=== PATIENT | female | born 1995 | race Caucasian/White ===

== ENCOUNTER 2022-10-03 20:26 | Emergency (ER) | payer MEDICAID ==
[~2022-10-03] VITALS: Ht 160 cm; Wt 81.6 kg
[2022-10-03 20:32] VITALS: BP_SYST 134
[2022-10-03] MEDS ORDERED: DOXYCYCLINE HYCLATE 100 MG CAPSULE PO ONE (22:15)
[2022-10-03] MEDS ORDERED: LIDOCAINE 1% 10 MG/ML, 20 ML MDV ID ONE (22:15)
[2022-10-03] MEDS ORDERED: ACETAMINOPHEN 500 MG TABLET PO ONE (22:15)
[2022-10-03] MEDS ORDERED: DOXY100C PO (22:39)
[2022-10-03 22:46] VITALS: BP_SYST 134
== END 2022-10-03 22:46 | disposition home or self-care (01) ==
LOC: SED 20:26
DX: L02.31 Cutaneous abscess of buttock (principal); R22.42 Localized swelling, mass and lump, left lower limb; Z79.899 Other long term (current) drug therapy
CPT/HCPCS: 99283; 10060; J2001

== ENCOUNTER 2023-06-20 22:50 | Emergency (ER) | payer MEDICAID ==
[~2023-06-20] VITALS: Ht 160 cm; Wt 81.6 kg
[~2023-06-20 22:50] MED LIST: DOXY100C PO
[2023-06-20 23:07] VITALS: BP_SYST 147; PULSE 91; RESP 18; TEMP 97.9; O2SAT 16
[2023-06-21] MEDS ORDERED: KETOROLAC TROMETHAMINE 30 MG VIAL IVP ONE (00:15)
[2023-06-21] MEDS ORDERED: PIPERACILLIN/TAZO 3.375 GM in NS 50 ML IV ONE (00:15)
[2023-06-21] MEDS ORDERED: PIPERACILLIN/TAZOBACTAM 3.375 GM/VIAL (ZOSYN) IV ONE (00:25)
[2023-06-21 00:54] LABS: BASOPHILS # (AUTO) 0.1 K/uL (0.0-0.2); BASOPHILS % (AUTO) 0.8 % (0.0-2.0); EOSINOPHILS # (AUTO) 0.2 K/uL (0.0-0.4); LYMPHOCYTES # (AUTO) 2.5 K/uL (1.0-5.5); LYMPHOCYTES % (AUTO) 33.7 % (20.5-51.5); MEAN CORPUSCULAR HEMOGLOBIN 24 pg (27-31); MEAN CORPUSCULAR HGB CONC 32 % (32-36); MEAN CORPUSCULAR VOLUME 75 fL (79.0-98.0); MONOCYTES # (AUTO) 0.7 K/uL (0.0-1.0); MONOCYTES % (AUTO) 9.1 % (1.7-9.3); NEUTROPHILS % (AUTO) 53.4 % (40.0-70.0); PLATELET COUNT (AUTO) 523 K/uL (130-430); RED CELL DISTRIBUTION WIDTH 15.3 % (9.0-15.0); WHITE BLOOD COUNT (AUTO) 7.4 K/uL (4.8-10.8)
[2023-06-21 00:57] LABS: CALCIUM 9.3 mg/dL (8.4-11.0); CREATININE 1.04 mg/dL (0.55-1.30); POTASSIUM 3.9 mmol/L (3.5-5.1)
[2023-06-21 01:02] LABS: ALBUMIN 3.8 g/dL (3.4-4.8); TOTAL BILIRUBIN 0.2 mg/dL (0.0-1.0)
[2023-06-21] MEDS ORDERED: IBUP-1969 PO (05:30)
[2023-06-21 05:41] VITALS: BP_SYST 100; PULSE 74; RESP 18; TEMP 97.1; O2SAT 96
== END 2023-06-21 05:40 | disposition home or self-care (01) ==
LOC: SED 22:50
DX: S31.839A Unspecified open wound of anus, initial encounter (principal); L98.8 Other specified disorders of the skin and subcutaneous tissue; Z79.899 Other long term (current) drug therapy; X58.XXXA Exposure to other specified factors, initial encounter; Y93.89 Activity, other specified; Y92.89 Other specified places as the place of occurrence of the external cause; Y99.8 Other external cause status
CPT/HCPCS: 99285; 80053; 85025; 87040; 36415; 81025; 83605; 96365; 72193; 96375; 76376; J1885; J2543; Q9967